=== PATIENT | male | born 1955 | race Caucasian/White ===

== ENCOUNTER 2019-03-25 07:34 | Day surgery (SDC) | payer BC ==
[~2019-03-25 07:34] MED LIST: CEFAZOLIN 2 Gram 2 GM/50 ML BAG IVPB SCH; FAMOTIDINE 20MG TABLET PO ONE; METOCLOPRAMIDE 10 MG TABLET PO ONE; RINGERS SOLUTION,LACTATED 1,000 ML IV ONE
[2019-03-25] MEDS ORDERED: ROCURONIUM BROMIDE 50MG/5ML VIAL IV ONE (07:35)
[2019-03-25] MEDS ORDERED: MORPHINE SULFATE PF 10MG/10ML VIAL IV ONE (07:35)
[2019-03-25] MEDS ORDERED: FENTANYL PF 100MCG/2ML VIAL IV ONE (07:35)
[2019-03-25] MEDS ORDERED: BUPIVACAINE LIPOSOME/PF 133MG/10ML VIAL IV ONE (07:35)
[2019-03-25] MEDS ORDERED: MIDAZOLAM HCL 2MG/2ML VIAL IV ONE (07:35)
[2019-03-25] MEDS ORDERED: GLYCOPYRROLATE 0.2 MG/ML ML IV ONE (07:35)
[2019-03-25] MEDS ORDERED: ONDANSETRON HCL IV 4 MG/2 ML VIAL IVP ONE (07:35)
[2019-03-25] MEDS ORDERED: SUCCINYLCHOLINE 20 MG/ML 10ML IVP ONE (07:35)
[2019-03-25] MEDS ORDERED: PROPOFOL 10 MG/ML VIAL IV ONE (07:35)
[2019-03-25] MEDS ORDERED: DEXAMETHASONE 4 MG/ML 1ML VIAL IVP ONE ×2 (07:35)
[2019-03-25] MEDS ORDERED: LIDOCAINE 2% MDV (20MG/ML) 20ML VIAL IV ONE (07:35)
[2019-03-25] MEDS ORDERED: SEVOFLURANE 250 ML INH ONE (07:35)
[2019-03-25] MEDS ORDERED: BUPIVACAINE 0.25% MPF 30ML VIAL IVP ONE (07:35)
[2019-03-25 07:47] LABS: EOS % 3.6 % (0-6); GRAN % 55.6 % (47-80); HEMOGLOBIN 15.3 gm/dl (14.0-18.0); MEAN CELL VOLUME 93.1 fl (81-97); MEAN CORPUSCULAR HGB CONC 33.3 g/dl (32-36); MEAN PLATELET VOLUME 8.8 fl (7.4-10.4); MONO % 8.8 % (0-9); PLATELET COUNT 214 K/uL (130-400); RED BLOOD COUNT 4.94 M/uL (4.40-5.70); RED CELL DISTRIBUTION WIDTH 13.6 % (11.5-14.5)
[2019-03-25 07:58] LABS: BLOOD UREA NITROGEN 17 mg/dL (8-23); EST GLOMERULAR FILTRATION RATE > 60 mL/min; GLUCOSE,RANDOM 108 mg/dL (74-109)
[2019-03-25] MEDS ORDERED: MECLIZINE 25 MG TABLET PO ONE (08:38)
[2019-03-25] MEDS ORDERED: RINGERS SOLUTION,LACTATED 1,000 ML IV ONE ×2 (09:53→10:37)
[2019-03-25] MEDS ORDERED: BUPIVACAINE 0.5% W/EPI MPF 30 ML VIAL SQ ONE (11:12)
[2019-03-25] MEDS ORDERED: MORPHINE SULFATE 5 MG/ML VIAL IM ONE (11:14)
--- NOTE | 2019-03-26 09:11 | Operative Note ---
DATE OF SERVICE: 03/25/2019. DATE OF SURGERY: 03/25/2019. PREOPERATIVE DIAGNOSIS: Tear of the rotator cuff on the right. POSTOPERATIVE DIAGNOSES: 1. Large chronic tear of the rotator cuff on the right. 2. Diffuse synovitis, right shoulder. 3. Profound external impingement, right shoulder. 4. Advanced arthrosis, right distal clavicle. OPERATION: 1. Repair of a chronically torn right shoulder rotator cuff. 2. Right shoulder arthroscopy with intraarticular debridement. 3. Right shoulder open acromioplasty, CA ligament resection, subacromial bursectomy. 4. Right shoulder distal clavicle resection. SURGEON: Alec Livingston MD. ANESTHESIA: General. PREPARATION: ChloraPrep. INDIVIDUAL CONSIDERATIONS: None. PROCEDURE: Patient was taken to the operating room, placed supine on the operating room table. Had a successful induction with general anesthetic. He was then placed in semi-seated beach chair position, and the right upper extremity was prepped and draped in the usual fashion. Examination under anesthesia showed no instability. Patient had posterior portal identified for arthroscopy. Skin was infiltrated with 0.5% Marcaine with epinephrine prior. An 18 gauge spinal needle was easily placed in the joint, and the joint was inflated with normal saline. A stab wound was made and a blunt-tipped trocar with the scope was placed in the joint, and the joint was inflated with normal saline. An anterior accessory portal was then made just inferior to the intact long head of the biceps tendon in a retrograde fashion with a Wissinger samantha. The joint was irritated out. Patient had diffuse synovitis, which was debrided. Glenohumeral joint was normal. Obvious large tear of the rotator cuff at the supraspinatus. Long head was intact. Subscap was normal. No loose bodies were seen inferiorly, just synovium. After debridement, the arthroscopy portals were closed with lavinia. Patient had anterior approach to the subacromial space and distal clavicle. Skin was again infiltrated with 0.5% Marcaine with epinephrine prior. Sharp dissection carried down through the skin and subcutaneous tissue. Small veins were coagulated with the Bovie. An anterior deltoid interval was developed. Care was taken not to split the deltoid more than about 4 cm distal to the anterior tip of the acromion. This was to preserve the axillary nerve. In the subacromial space, there was a large woodall of fluid, consistent with a tear. Deltoid was then taken subperiosteally off the anterior aspect of the acromion, over the top of the intact CA ligament, and off the anterior aspect of the highly degenerated acromioclavicular joint. The CA ligament was resected with the Bovie. Distal clavicle was resected with an offsetting saw. Had a huge, spurred, downsloping acromion. I took almost 2 cm, most of this being spur, tapering to wedge posteriorly to include the spurs to the AC joint. I then did a complete bursectomy, smoothed the undersurface with a rasp. Patient had a large tear of the rotator cuff. Basically, it was L-shaped, taking pretty much all the supraspinatus off and then going up along longitudinally. I was able to easily mobilize it and freshen it. I burred a small trough in the tuberosity just lateral to the long head. I placed multiple retention sutures in the end of the tendon and laquita it into the trough, which was about 2-2.5 cm, and then the longitudinal rent was closed with buried knot and multiple running #1 Vicryl suture. This gave essentially an anatomic repair. I put the shoulder through a full range of motion to ensure no further impingement. After irrigation, the deltoid was reattached to the remaining acromion with multiple interrupted #2 Vicryl, going directly through the bony acromion. Periosteal cuff of the distal clavicle was closed with running #2 Vicryl. Anterior deltoid interval was closed with running #1 Vicryl. Subcu was closed with 2-0 plus Vicryl. Skin was closed with lavinia. I placed an 18 gauge spinal needle into the subacromial space. I infiltrated it with 20 mL of 0.5% Marcaine with epinephrine, along with 10 mg of morphine, and a sterile, bulky, compressive dressing and sling were applied. Patient tolerated the procedure well. Needle and sponge counts were correct. Estimated blood loss was minimal, and he was taken back to recovery in good condition. There were no complications. [facility]
== END 2019-03-25 12:25 | disposition home or self-care (01) ==
LOC: SUR 07:34
PROVIDERS: ATTEND Orthopaedic Surgery
DX: M75.101 Unspecified rotator cuff tear or rupture of right shoulder, not specified as traumatic (principal); M65.811 Other synovitis and tenosynovitis, right shoulder; M75.41 Impingement syndrome of right shoulder; M19.011 Primary osteoarthritis, right shoulder; I10 Essential (primary) hypertension; E03.9 Hypothyroidism, unspecified; K21.9 Gastro-esophageal reflux disease without esophagitis; F17.290 Nicotine dependence, other tobacco product, uncomplicated
CPT/HCPCS: 76942; 80048; 85025; C9290; J0330; J2405; J7120